=== PATIENT | male | born 1960 | race Caucasian/White ===

== ENCOUNTER → 2019-02-24 08:41 | Outpatient (CLI) | payer OTHER, SELFPAY ==
--- NOTE | 2019-02-24 | XR_ITS ---
XR ankle RT min 3V HISTORY: Chronic ulcers, pain ITS.REASON: ULCERS ORDERING PHYSICIAN: Pierre Toro PATIENT AGE: 58 years Comparison: 07/04/2014 FINDINGS: There is artifact from overlying wrap No fracture or dislocation. No lytic or blastic change. There is normal mineralization.. 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 No bony erosive process evident
--- NOTE | 2019-02-24 | XR_ITS ---
XR ankle LT min 3V HISTORY: Alteration, pain ORDERING PHYSICIAN: Pierre Toro PATIENT AGE: 58 years Comparison: 04/13/2012 FINDINGS: Artifact is present from overlying wrap. Accessory center of ossification versus old injury noted at the tip of the lateral malleolus. No fracture or dislocation. No lytic or blastic change. IMPRESSION: Overlying artifact, no acute finding
--- NOTE | 2019-02-24 08:49 | NM_ITS ---
NM bone 3 phase CLINICAL INDICATION: ITS.REASON: CHRONIC ULCER OF ANKLE,RT ANKLE WOUND ORDERING PHYSICIAN: Pierre Toro PATIENT AGE: 58 years Comparison: 07/04/2014 DOSE: 24.6 mCi technetium MDP FINDINGS: There is increased blood flow to the right lower extremity most intense along the medial aspect of the right ankle. Slight increased blood flow is also noted along the medial aspect of the left ankle. Immediate blood flow images show increased activity at the right medial malleoli region and to a lesser extent along the left medial malleolus. There is also some increased blood flow activity in the right mid foot forefoot. Delayed images show focal intense increased activity involving the medial malleoli region on the right and to a lesser extent the medial malleoli region on the left. There is also increased activity in the talonavicular region. IMPRESSION: 1. Increased blood flow blood flow and delayed activity involving the medial malleolus of the right ankle consistent with cellulitis with osteomyelitis. This has the same appearance on the previous exam. 2. There is slight increase blood flow blood: Delayed activity involving the medial aspect of the left ankle. This is nonspecific and had a similar appearance on the previous exam and may only be related to cellulitis. One cannot exclude the possibility of osteomyelitis here as well
== END ==
PROVIDERS: PCP Podiatrist Foot & Ankle Surgery; Visit Provider Podiatrist Foot & Ankle Surgery
DX: S91.001A Unspecified open wound, right ankle, initial encounter (principal); L03.90 Cellulitis, unspecified
CPT/HCPCS: 73610; 78315; A9503

== ENCOUNTER 2019-11-17 11:24 | Outpatient (CLI) | payer MEDICARE, MEDICAID, SELFPAY | END 2019-11-17 12:00 | disposition home or self-care (01) | LOC: INF 11:26 | PROVIDERS: PCP Family Medicine; Visit Provider Internal Medicine Infectious Disease | DX: Z45.2 Encounter for adjustment and management of vascular access device (principal); L03.115 Cellulitis of right lower limb; L97.315 Non-pressure chronic ulcer of right ankle with muscle involvement without evidence of necrosis; M86.671 Other chronic osteomyelitis, right ankle and foot | CPT/HCPCS: 96523 ==

== ENCOUNTER 2019-11-24 11:59 | Outpatient (CLI) | payer MEDICARE, MEDICAID, SELFPAY | END 2019-11-24 12:30 | disposition home or self-care (01) | LOC: INF 11:59 | PROVIDERS: Visit Provider Internal Medicine Infectious Disease | DX: L03.115 Cellulitis of right lower limb (principal); L97.315 Non-pressure chronic ulcer of right ankle with muscle involvement without evidence of necrosis; M86.671 Other chronic osteomyelitis, right ankle and foot; I87.2 Venous insufficiency (chronic) (peripheral); S91.001A Unspecified open wound, right ankle, initial encounter | CPT/HCPCS: 96523 ==